=== PATIENT | male | born 1965 | race Caucasian/White ===

== ENCOUNTER 2025-04-22 13:33 | Emergency (ER) | payer BC ==
[~2025-04-22] VITALS: Ht 182.9 cm; Wt 77.1 kg
[2025-04-22 14:58] LABS: PLATELET COUNT (AUTO) 233 K/uL (150-450); RED BLOOD CELL COUNT(AUTO) 4.42 MIL/uL (4.5-6.0); RED CELL DISTRIBUTION WIDTH 12.9 % (11.5-15.0); WHITE BLOOD COUNT (AUTO) 9.1 K/uL (4.3-11.0)
[2025-04-22 15:03] LABS: CALCIUM, SERUM 8.8 mg/dL (8.5-10.1); CREATININE 0.8 mg/dL (0.6-1.3); SODIUM SERUM 142.0 mmol/L (136-145); UREA NITROGEN, BLOOD 21.0 mg/dL (7-18)
[2025-04-22] MEDS ORDERED: IBUPROFEN 600 MG TABLET ONE (17:37)
[2025-04-22] MEDS: IBUPROFEN 600 MG TABLET PO ONE (17:39)
[2025-04-22 17:48] VITALS: BP 119/71; TEMP 97.6; O2SAT 99
== END 2025-04-22 17:48 | disposition home or self-care (01) ==
LOC: ER 14:06
DX: R07.89 Other chest pain (principal); F17.200 Nicotine dependence, unspecified, uncomplicated
CPT/HCPCS: 36415; 71045-TC; 80048-TC; 84484-TC; 85025-TC; 85378-TC